=== PATIENT | female | born 1995 | race Caucasian/White ===

== ENCOUNTER 2019-05-24 07:49 | Inpatient (IN) | payer OTHER ==
[~2019-05-24] VITALS: Ht 152.4 cm; Wt 58.1 kg
--- NOTE | ~2019-05-24 | OP ---
[address] [address] OPERATIVE REPORT Name: ZARI MARTINI Room: [address] IN .R.#: [id number] Admission: 05/24/19 Attend Phys: Cris Stewart MD Discharge: Date of : 89 Report #: [id number] THIS REPORT FOR: //name// cc: Margaret Edwards MD, Regina MD ~ THIS REPORT FOR: //name// CC: Ravinder Edwards DATE OF SERVICE: 05/24/2019 PREOPERATIVE DIAGNOSES: Bilateral renal and ureteral calculi, right flank pain. POSTOPERATIVE DIAGNOSES: Bilateral renal and ureteral calculi, right flank pain. PROCEDURES: Cystoscopy, bilateral retrograde pyelograms, bilateral ureteral stents, right ureteropyeloscopy, laser lithotripsy, stone extraction. SURGEON: Ravinder Cruz MD. ANESTHESIA: General. ESTIMATED BLOOD LOSS: None. DRAINS: 6 x 28 ureteral stents bilaterally. SPECIMENS: Stone fragments. COMPLICATIONS: None. INDICATIONS: This is a 23-year-old female admitted with right flank pain. CT scan revealed small bilateral renal calculi as well as bilateral proximal ureteral calculi with right hydronephrosis. Alternatives for management were discussed. The patient has elected to undergo cystoscopy with bilateral retrograde pyelograms, left ureteral stent placement, right ureteroscopy with laser lithotripsy, stone extraction, probable stent placement. Risks of procedure were explained including but not limited to bleeding, infection, anesthesia, cardiopulmonary and vascular events, injuries to urethra, bladder, ureters and surrounding structures, possible development of strictures, stent discomfort, need for further procedures for her stones. We also discussed the importance of timely followup regarding any stent left in place and the reasoning for that. Stricture risk was discussed. The patient voiced clear understanding [place] [address] OPERATIVE REPORT Name: VINIZARI K Room: [address] IN [facility]#: [id number] Admission: 05/24/19 Attend Phys: Cris Stewart MD Discharge: Date of : 89 Report #: [id number] DESCRIPTION OF PROCEDURE: The patient was pretreated with IV antibiotics. After induction of general anesthesia, she was positioned, prepped and draped in the lithotomy position. Time-out procedure was performed. Cystourethroscopy was performed. The urethra was normal. Systematic examination of the bladder was normal. Ureteral orifices were orthotopic. No blood was seen from either. A 5-Citizen [place] ureteral catheter was used to perform a left retrograde pyelogram, which reveals normal course and caliber of the mid and distal ureter. There was a small filling defect in the proximal ureter. Renal pelvis appears normal to mildly dilated. I elected to place a stent. A sensor wire was advanced per the left ureter and into the renal pelvis. The wire was used for placement of a 6 x 28 left ureteral stent with good position confirmed in the renal pelvis fluoroscopically and in the bladder visually. Brisk drainage of clear urine was noted from the stent. A 5-Citizen [place] ureteral catheter was then used to perform a right retrograde pyelogram, which reveals normal course and caliber of the mid and distal ureter. There was a filling defect just distal to the ureteropelvic junction with dilation of the renal pelvis. A sensor wire was advanced into the renal pelvis with fluoroscopic guidance. Scope was removed leaving the wire in place. A semirigid ureteroscope was advanced alongside the wire and the distal ureter examined. No stones or abnormalities were seen in the distal ureter. Scope passed easily with gravity irrigation into the mid ureter and no abnormalities were seen there. The scope passed easily into the proximal ureter. Stone was noted to migrate proximally with manipulation with the scope. The scope was therefore withdrawn leaving the wire in place. An 11-Citizen [place] obturator was advanced with fluoroscopic guidance over the wire and passes easily. This was then removed and passed in tandem with a 13 [place] x 28 cm ureteral access sheath. This again passes easily with fluoroscopic guidance. The obturator was removed leaving the sheath in place with the wire inside. Flexible ureteroscope was advanced over the wire and to the end of the sheath. The wire was then removed. The remainder of the proximal ureter was examined. There was mild edema near the UPJ. Scope advanced to the renal pelvis, where a stone was immediately encountered. This was broken up with a 272 micron holmium laser fiber at 6.4 denton. Stone broke up nicely. Fragments were extracted with a 0 tip basket. The calices were then examined sequentially. Another small stone was encountered in the collecting system and engaged with the holmium laser fiber. This was broken up into small fragments, which were extracted with a 0 tip basket. Care was taken to avoid injury to the surrounding tissues during laser lithotripsy and basket extraction. Calices were examined again and no remaining stones or abnormalities are seen. The scope was withdrawn to examine the ureteropelvic junction and aside from the previously mentioned edema in the proximal ureter, this area is normal. The sheath was then withdrawn after advancing a wire up the flexible ureteroscope and into the renal pelvis. The scope was withdrawn while monitoring the position of the wire. The remainder of the ureter was thus examined and there were no remaining fragments. The wire was loaded on the cystoscope and used for placement of a 6 x 28 right ureteral stent with good position confirmed in the renal pelvis fluoroscopically [address] [address] OPERATIVE REPORT Name: MARTINIZARI Room: [address] [place] M.R.#: [id number] Admission: 05/24/19 Attend Phys: Cris Stewart MD Discharge: Date of : 89 Report #: [id number] and in the bladder visually. The bladder was emptied and the scope was removed. Lidocaine jelly was given per urethra. The patient tolerated the procedure well and was taken to the recovery room in stable condition. Plan will be to obtain a repeat radiograph in approximately 1 week and discuss management of her left-sided stone burden and bilateral stents at that time. By: [id number] Cruz MD /nt
[~2019-05-24 07:49] MED LIST: HYDROXYZINE PAM25 M1; PHENERGAN 25 MG25 M1 PO; PREDNISONE 20 M20 M1 PO
[2019-05-24 08:01] VITALS: BP 118/78
[2019-05-24 08:33] LABS: URINE BILIRUBIN NEGATIVE (Negative); URINE BLOOD 3+ (Negative); URINE CLARITY CLEAR; URINE COLOR YELLOW; URINE GLUCOSE-RANDOM NEGATIVE (Negative); URINE KETONES NEGATIVE (Negative); URINE LEUKOCYTES-REFLEX NEGATIVE (Negative); URINE NITRITE-REFLEX NEGATIVE (Negative); URINE PROTEIN 2+ (Negative); URINE SPECIFIC GRAVITY >= 1.030 (1.005-1.030); URINE UROBILINOGEN 0.2 E.U./dl (0.2-1.0)
[2019-05-24 08:44] LABS: CASTS None Seen /LPF (None Seen); CRYSTALS None Seen /LPF (None Seen); MUCUS >6 Heavy strn/LPF (None Seen); SQUAMOUS 0-3 Few /LPF (0-3); URINE WBC-REFLEX 0-5 Rare /HPF (0-5)
[2019-05-24 08:46] LABS: ABSOLUTE EOSINOPHILS 0.1 thou/uL (0.0-0.7); ABSOLUTE LYMPHOCYTES 1.3 thou/uL (0.8-5.3); ABSOLUTE MONOCYTES 0.4 thou/uL (0.0-1.2); ABSOLUTE NEUTROPHILS 6.3 thou/uL (1.6-8.1); BASOPHILS 0.4 %; EOSINOPHILS 1.8 %; HEMATOCRIT 40.1 % (37.0-47.0); LYMPHOCYTES 16.1 %; MCH 31.2 pg (26.0-34.0); MCHC 34.8 g/dL (28.0-37.0); MCV 89.5 fL (80.0-100.0); MONOCYTES 5.1 %; MPV 8.1 fl. (7.2-11.1); NUCLEATED RBCS 0 /100WBC; PLATELET COUNT* 295 thou/uL (150-400); POLYS 76.6 %; RBC 4.48 mil/uL (4.20-5.00); RDW-CV 11.5 % (10.5-14.5); WBC 8.3 thou/uL (4.0-11.0)
[2019-05-24 08:56] LABS: CALCIUM 8.7 mg/dL (8.5-10.1); CREATININE 0.7 mg/dL (0.6-1.3); POTASSIUM 4.3 mmol/L (3.5-5.1)
[2019-05-24 09:00] LABS: TOTAL BILIRUBIN 0.6 mg/dL (<0.1-1.0); TOTAL PROTEIN 7.8 g/dL (6.4-8.2)
[2019-05-24 14:59] VITALS: BP 110/60
--- NOTE | 2019-05-24 19:24 | NUR ---
PT ARRIVED TO UNIT AT 182. VSS, PT AOX4, FAMILY AT BEDSIDE. PT TOLERATING RA, NO C/O PAIN AT THIS TIME BUT IS HAVING FREQUENCY OF URINATION THAT IS BLOODY AT THIS TIME. PT HAS REGULAR DIET ORDERED AND FAMILY STATED THEY WOULD GET HER SOMETHING FOR DINNER, OTHERWISE WATER AND JELLO HAVE BEEN PROVIDED. PT HAS NO WOUNDS NOTED AND IS TOLERATING BEING UP SBA AT THIS TIME WITH A SLOW BUT STEADY GAIT. NO OTHER CONCERNS NOTED AT THIS TIME. WILL SIGN OFF AT THIS TIME.
[2019-05-24 20:00] VITALS: BP 117/78
[2019-05-25] VITALS: BP 97/61
--- NOTE | 2019-05-25 05:05 | NUR ---
ASSUMED PT CARE AT 1930. PT ALERT AND ORIENTED X4, VSS. PT AT BEDSIDE OVERNIGHT. PT TOLERATED LARGE DINNER BROUGHT IN BY FAMILY. NO N/V. PT HAD PLACEMENT OF TWO STENTS ON 05/23. PT HAVING FREQUENT VOIDS, PROGRESSIVELY LESS BLOODY THE NIGHT CONTINUED. ALL VOIDS STRAINED, NO STONES RECOVERED. PIV INFUSING TO RIGHT HAND. PT HAD PRN PAIN AND BLADDER SPASM MEDICATIONS TWICE THIS SHIFT. PT SLEPT WELL BETWEEN VOIDS. USES CALL LIGHT APPROPRIATELY. HOURLY ROUNDING IN PROGRESS, WILL CONTINUE TO MONITOR.
[2019-05-25] MEDS ORDERED: FLOMAX0.4 MG PO (07:56)
[2019-05-25] MEDS ORDERED: BACTRIM DS TAB1 EAC1 PO (07:56)
[2019-05-25] MEDS ORDERED: LEVSIN0.125 MG SUBLING (07:56)
[2019-05-25] MEDS ORDERED: HYDROCODON-ACE1 EAC7 PO (07:56)
[2019-05-25 08:00] VITALS: BP 100/49
[2019-05-25 10:23] VITALS: BP 100/49
== END 2019-05-25 11:30 | disposition home or self-care (01) | DRG 661 ==
LOC: M.ERS 07:49 → M.ORTHSURG 10:47 → M.TBA-ER 10:47 → M.ORTHSURG 18:17
PROVIDERS: Emergency Medicine; ADMIT Internal Medicine
PROC: BT141ZZ Fluoroscopy of Kidneys, Ureters and Bladder using Low Osmolar Contrast (ICD-10-PCS; principal; 2019-05-24)
PROC: 0T788DZ Dilation of Bilateral Ureters with Intraluminal Device, Via Natural or Artificial Opening Endoscopic (ICD-10-PCS; principal; 2019-05-24)
PROC: 0TC68ZZ Extirpation of Matter from Right Ureter, Via Natural or Artificial Opening Endoscopic (ICD-10-PCS; principal; 2019-05-24)
DX: N13.2 Hydronephrosis with renal and ureteral calculous obstruction (principal); F12.90 Cannabis use, unspecified, uncomplicated; J45.909 Unspecified asthma, uncomplicated; R31.29 Other microscopic hematuria; Z88.8 Allergy status to other drugs, medicaments and biological substances; Z88.0 Allergy status to penicillin; Z72.89 Other problems related to lifestyle; Z84.1 Family history of disorders of kidney and ureter; Z79.899 Other long term (current) drug therapy; Z79.2 Long term (current) use of antibiotics